=== PATIENT | female | born 1990 | race Caucasian/White ===

== ENCOUNTER 2019-05-29 15:47 | Outpatient (REF) | payer BC, SELFPAY ==
--- NOTE | 2019-05-29 15:00 | PAPFT_PTH ---
PATIENT: Laura Baker LOC: [facility] U#:[id number] AGE/SX: 28/F ROOM: RE05/29/[address]: Bennett Lindo MD : 1990 BED: DIS: 05/29/2019 SPEC #: [id number] RECD: 05/29/19 17:34 STATUS: DESI REQ #: [id number] CAROLYN: 05/29/19 15:[address]: Bennett Lindo DEPT: [facility] Cytology RECD BY: Amy Watson Tissues: 1 - CX/ENDOCX FOR PAP SMEARS Procedures: PAP THIN PREP/UVM Screening HPV DNA PROBE Comments: [id number] (CHLAMYDIA/GC)
[2019-06-02 13:56] LABS: Chlamydia Result Negative; GC Result Negative; Specimen Description SEE COMMENTS
== END 2019-05-29 16:07 ==
LOC: LBN 15:47
PROVIDERS: Visit Provider Obstetrics & Gynecology
DX: Z12.4 Encounter for screening for malignant neoplasm of cervix (principal); Z11.51 Encounter for screening for human papillomavirus (HPV); Z11.3 Encounter for screening for infections with a predominantly sexual mode of transmission
CPT/HCPCS: 87491; 87591; 88142; 87624

== ENCOUNTER 2019-06-01 07:24 | Outpatient (CLI) | payer BC, SELFPAY ==
--- NOTE | 2019-06-01 09:58 | DI.US_ITS ---
EXAM: US PELVIS TRANSVAGINAL CLINICAL HISTORY: Pelvic pain, history of ovarian torsion on right, R10.2. TECHNIQUE: Ultrasound performed using standard protocol. COMPARISON: No exams were available for comparison FINDINGS: Pelvic ultrasound was performed transabdominally and transvaginally. Uterus is normal in appearance. Endometrial stripe is 3 millimeters in thickness and appears homogeneous. The patient reportedly has history of right ovarian torsion. On today's examination the ovaries are symmetrical in size. There is a normal follicular appearance of the left ovary. Right ovary contain s no visible follicles. Fairly symmetrical vascular flow to the ovaries identified on Doppler evalua tion. No free fluid identified in the cul-de-sac. Limited scanning of the kidneys is. IMPRESSION: No specific abnormality seen. Note is made that the right ovary contains no visible follicles. Left ovary has a normal follicular appearance.
== END 2019-06-01 07:44 ==
PROVIDERS: Visit Provider Obstetrics & Gynecology
DX: R10.2 Pelvic and perineal pain (principal)
CPT/HCPCS: 76830; 76856

== ENCOUNTER 2019-09-04 10:32 | Outpatient (CLI) | payer BC, SELFPAY ==
[2019-09-04 11:51] LABS: Abs Immature Grans 0.01 k/cumm (0.0-0.09); Absolute Basophil Count 0.02 k/cumm (0.0-0.2); Absolute Eosinophil Count 0.11 k/cumm (0.0-0.7); Absolute Lymphocyte Count 2.11 k/cumm (1.2-3.4); Absolute Neutrophil Count 3.24 k/cumm (1.2-6.7); Basophils % 0.3; Eosinophils % 1.9; HGB 12.8 g/dL (12.0-15.5); Immature Grans % 0.2 %; Lymphocytes % 35.8; Mean Corp. HGB Concentration 33.7 g/dL (32.0-36.0); Mean Corpuscular Hemoglobin 29.6 pg (27.0-33.0); Mean Corpuscular Volume 87.8 fL (80-95); Monocytes % 6.8; Platelet Count 278 x1000/uL (130-400); RBC 4.33 m/cumm (4.00-5.20); RBC Distribution Width 12.9 % (11.7-14.6); White Blood Cell Count 5.89 k/cumm (4.4-10.8)
== END 2019-09-04 10:52 ==
PROVIDERS: Visit Provider Obstetrics & Gynecology
DX: R10.2 Pelvic and perineal pain (principal); Z01.818 Encounter for other preprocedural examination; Z01.812 Encounter for preprocedural laboratory examination
CPT/HCPCS: 36415; 86850; 86900; 86901; 85025

== ENCOUNTER 2019-09-09 06:19 | Day surgery (SDC) | payer BC, SELFPAY ==
[2019-09-04 10:38] VITALS: BP 110/80; PULSE 66; RESP 16
[2019-09-09] VITALS (7 sets, daily range): BP systolic 101–121; BP diastolic 51–86; PULSE 55–69; RESP 15–24; TEMP 36.3–36.8; O2SAT 96–100
[2019-09-09] MEDS: Lactated Ringers 1,000 ML 125 ML IV (06:57)
[2019-09-09] MEDS: ceFAZolin 2 GM/50 ML BAG IVPB (07:29)
[2019-09-09] MEDS: Bupivacaine 0.5% Pres-Free 30 ML VIAL (08:22)
--- NOTE | 2019-09-09 08:46 | W.PM.DSUDISC ---
Discharge Plan Disposition Patient Disposition: HOME Condition: Good Discharge Details Attending Provider: Bennett Lindo Primary Care Provider: None,None Home Meds and New Rx's Prescriptions: Continued norethindrone-e.estradiol-iron [Loestrin Fe 09/07 (28-Day)] 1 mg-20 mcg (21)/75 mg (7) tablet 1 tab PO DAILY RF: 0 Discharge Instructions Activity:: Activity as Tolerated Diet:: As Tolerated Discharge Orders Discharge Orders: Discharge Order (Routine); Ordered 09/09/19 Ordered By: Bennett Lindo DS: Diagnosis Discharge Diagnosis (1) Adnexal pain: Status: Acute
--- NOTE | 2019-09-09 08:47 | W.PM.OP ---
Date of service: 09/09/19 Time of Service: 08:47 Operative Note Operative Note DATE OF PROCEDURE: 09/09/19 PRE-OP DIAGNOSIS: Right adnexal pain POST-OP DIAGNOSIS: same PROCEDURE: Laparoscopy with lysis of adnexal adhesions. SURGEON: Bennett Lindo ASSISTING SURGEON: Jeanette Kumar ANESTHESIA: GETA ESTIMATED BLOOD LOSS: 0 PATHOLOGY: none sent COMPLICATIONS: None Patient was transported to: PACU Patient's condition: stable Findings: 1. Adhesions involving the ovary to the broad ligament and ovarian fossa. Procedure Description: The patient was taken to the operating room and after adequate general anesthesia, the patient was placed in lithotomy position. The patient was prepped and draped in the usual sterile manner. A e-Zassi uterine manipulator was placed through the cervix. The patient was repositioned. The surgeon was regloved. Attention was then turned to the patient's abdomen. The skin and subcutaneous tissues at the umbilicus were infiltrated with 0.25% Marcaine solution. A small infraumbilical skin incision was then made with a #15 blade scalpel. Sharp dissection was carried down to the underlying layer of fascia. The fascia was grasped and elevated with 2 Merlene clamps. The fascia was incised with a 15 blade scalpel and the peritoneum was entered bluntly with hemostats. Two S retractors were placed through the incision. The fascia was tagged with 2 sutures of 0 Vicryl superiorly and inferiorly. A 10 mm balloon trocar was advanced to the incision and the abdomen was insufflated with carbon dioxide. 2 5 mm ports were introduced in the right and left lower quadrants both under direct visualization. A thorough inspection of the entire abdominal cavity was undertaken. There was a small area of filamentous adhesions in the right upper quadrant. The uterus, left tube and ovary were grossly normal in appearance. The right ovary was incorporated into filmy adhesions to the posterior broad ligament and to the ovarian fossa. The ovary itself was grossly normal. The fallopian tube was also grossly normal and the fallopian tube was not involved with the adhesions. The adhesions were taken down along the pelvic sidewall into the ovarian fossa. The remaining adhesions to the broad ligament were also taken down with LigaSure device. Once the adhesions were taken down the ovary was mobile as was the fallopian tube and the decision was made to not proceed with oophorectomy at this time. Photodocumentation was obtained. The two 5 mm trochars were removed under direct visualization. The abdomen was desufflated and the 10 mm umbilical trocar was removed. The fascia at the umbilicus was closed with the 2 previously placed sutures of 0 Vicryl. Skin incisions were closed with 4 Monocryl and Dermabond was applied. The procedure was concluded at this point. Sponge, lap and needle counts were correct at the conclusion of the procedure and the patient was transferred to PACU in stable condition.
[2019-09-09] MEDS: fentaNYL 100 MCG/2 ML VIAL IVP (08:55)
== END 2019-09-09 10:46 | disposition home or self-care (01) ==
PROVIDERS: Visit Provider Obstetrics & Gynecology
PROC: (CPT 58661; principal; 2019-09-09 07:30)
DX: N73.6 Female pelvic peritoneal adhesions (postinfective) (principal); R10.2 Pelvic and perineal pain; R10.31 Right lower quadrant pain
CPT/HCPCS: 58660; 81025; J0131; J0690; J1100; J1885; J2001; J2250; J2405; J2704; J3010

== ENCOUNTER 2020-03-24 01:17 | Outpatient (CLI) | payer BC, SELFPAY ==
--- NOTE | 2020-03-24 06:45 | DI.US_ITS ---
EXAM: US RENAL CLINICAL HISTORY: Persistent R flank pain, normal urine,r10.9 TECHNIQUE: Ultrasound performed using standard protocol. COMPARISON: US US PELVIS TRANSVAGINAL from 06/01/2019 FINDINGS: Kidneys are normal in size and shape. There is no right hydronephrosis. There is question of mild l eft hydronephrosis. Ureteral jets were noted bilaterally. No nephrolithiasis ultrasound a graphical ly criteria. Urinary bladder is unremarkable in appearance with pre and post void measurements 296 cc and 13 cc re spectively. IMPRESSION: Question mild left hydronephrosis. If clinically appropriate, additional evaluation with CT urogram should be considered to evaluate possible low-grade obstruction. DATA REPOSITORY:
== END 2020-03-24 01:37 ==
PROVIDERS: PCP Nurse Practitioner Adult Health; Visit Provider Family Medicine
DX: R10.9 Unspecified abdominal pain (principal)
CPT/HCPCS: 76770

== ENCOUNTER 2020-04-11 02:47 | Outpatient (CLI) | payer BC, SELFPAY ==
[2020-04-11 14:43] LABS: Anion Gap 14.3 mmol/L (3-11); BUN 14 mg/dL (7-18); CO2 24.7 mmol/L (21.0-32.0); CREATININE 0.69 mg/dL (0.55-1.02); Calcium 9.1 mg/dL (8.5-10.1); Chloride 107 mmol/L (98-107); Glucose 99 mg/dL (74-106); Potassium 3.7 mmol/L (3.5-5.1); Sodium 146 mmol/L (136-145)
== END 2020-04-11 03:07 ==
PROVIDERS: PCP Nurse Practitioner Adult Health; Visit Provider Nurse Practitioner Adult Health
DX: R10.9 Unspecified abdominal pain (principal); R93.422 Abnormal radiologic findings on diagnostic imaging of left kidney
CPT/HCPCS: 36415; 80048

== ENCOUNTER 2020-07-26 01:31 | Outpatient (CLI) | payer BC, SELFPAY ==
--- NOTE | 2020-07-26 07:30 | DI.US_ITS ---
EXAM: US RENAL CLINICAL HISTORY: Reassess ?L hydronephrosis,RT FLANK PAIN,F/U ABNL US,R10.9,R93.429 TECHNIQUE: Ultrasound performed using standard protocol. COMPARISON: US US RENAL from 03/24/2020 FINDINGS: Renal ultrasound was performed according to the usual protocol. The examination is compared with faustina or study of March 24 which showed question mild left hydronephrosis. The left collecting system an d proximal ureter appear unchanged comparison with the prior study, again slight caliceal prominence is noted and slight prominence of the renal pelvis is noted. No right hydronephrosis seen. There is no evidence of nephrolithiasis or renal mass by ultrasound cr iteria. Urinary bladder appears unremarkable with pre and postvoid urinary bladder volume measurements 188 cc and 0 cc respectively. Ureteral jets were not visualized. IMPRESSION: No change in appearance of left collecting system, question mild left hydronephrosis persistent since March examination. DATA REPOSITORY:
== END 2020-07-26 01:51 ==
PROVIDERS: PCP Nurse Practitioner Adult Health; Visit Provider Nurse Practitioner Adult Health
DX: R10.9 Unspecified abdominal pain (principal); R93.429 Abnormal radiologic findings on diagnostic imaging of unspecified kidney
CPT/HCPCS: 76770

== ENCOUNTER 2020-09-20 01:34 | Outpatient (CLI) | payer BC, SELFPAY ==
--- NOTE | 2020-09-20 06:45 | DI.CT_ITS ---
EXAM: CT ABDOMEN PELVIS WO/W CLINICAL HISTORY: mild hydro to left and continued flank pain,R93.429,R10.9,ABNL RENAL US TECHNIQUE: Imaging Protocol: Axial computed tomography images with coronal and sagittal reformatted images were created and reviewed CONTRAST MATERIAL: Intravenous: Omnipaque 350 Contrast volume:100 mL Oral: No COMPARISON: US US RENAL from 07/26/2020 FINDINGS: ABDOMEN: Lung Bases: Normal where visualized. Liver: Normal density. No measurable mass. Portal, Superior Mesenteric, and Splenic Veins: Unremarkable. Gallbladder and Biliary Tract: Status post cholecystectomy. No biliary ductal dilatation. Pancreas: Normal density, no abnormal calcifications or inflammatory process. Spleen: Normal. Adrenals: No masses seen. Kidneys: Normal size, contour and axis. No radiodense stones or obstructive uropathy. No masses seen. There is normal and symmetric enhancement of the kidneys. The 7 minutes delayed images show normal excretion of contrast with unremarkable opacification of both left and right renal collecting systems . No evidence of obstruction is seen. Abdominal Aorta: Abdominal portion non-dilated. Bowel: No obstruction or bowel wall thickening. No evidence of appendicitis. Peritoneal Cavity: No ascites, collection or mesenteric inflammatory response. No free air. Lymph Nodes: Within normal limits. Bones: Within normal limits for the patient's age. Soft Tissues: Unremarkable. PELVIS: Bladder: Symmetric distention, no gross wall thickening. Reproductive Organs: Unremarkable as visualized. Lymph Nodes: Within normal limits. Bones: Within normal limits for the patient's age. IMPRESSION: No evidence of nephrolithiasis or hydronephrosis. RADIATION DOSE DELIVERED: 2,170.46mGy.cm Total DLP DATA REPOSITORY: All CT scans at this facility are submitted to the National Radiology Data Registry (NRDR) Dose Index Registry (DIR) with the [employer] (A[employer]). RADIATION OPTIMIZATION: All CT scans at this facility use at least one of these dose optimization te chniques: automated exposure control; mA and/or kV adjustment per patient size (includes targeted exa ms where dose is matched to clinical indication); or iterative reconstruction.
[2020-09-20] MEDS: Omnipaque 350 MG/ML 100 ML BTL IJ (08:57)
== END 2020-09-20 01:35 | disposition home or self-care (01) ==
LOC: DI 01:34
PROVIDERS: PCP Nurse Practitioner Adult Health; Visit Provider Nurse Practitioner Gerontology
DX: R93.422 Abnormal radiologic findings on diagnostic imaging of left kidney (principal); R10.9 Unspecified abdominal pain
CPT/HCPCS: 74178; J3490

== ENCOUNTER 2021-10-24 10:00 | Day surgery (SDC) | payer OTHER, SELFPAY ==
[2021-10-23 16:04] LABS: Source Nasal/Nares
[2021-10-23 16:48] LABS: COVID-19 PCR Negative (Negative)
[2021-10-24 10:21] VITALS: BP 113/80; PULSE 59; RESP 16; TEMP 36.6; O2SAT 100
[2021-10-24 10:46] LABS: HGB 11.5 g/dL (11.2-15.7); MCH 30.7 pg (27.0-33.0); MCHC 34.8 % (32.0-36.0); MPV 8.8 fL (8.0-11.0); Platelet Count 249 10^3/uL (130-400); RBC 3.75 10^6/uL (3.93-5.22); RDW 12.6 % (11.7-14.6); RDW-SD 40.3 fL; WBC 7.73 10^3/uL (4.4-10.8)
[2021-10-24] MEDS: Lactated Ringers 1,000 ML 125 ML IV (10:50)
[2021-10-24] MEDS: DOXYCYCLINE 100 MG in Normal Saline 100 ML IVPB (11:04)
[2021-10-24] MEDS: Normal Saline Flush 10 ML SYR IV (11:06)
--- NOTE | 2021-10-24 11:11 | W.ANESPRE ---
General Info Date of Service Date Performed: 10/24/21 Height: 5 ft 5 in Weight: 70.4 kg Body Mass Index (BMI): 25.8 Surgical Procedure: Operation Date: 10/24/21 11:55 Proposed Procedure Side Surgeon p Suction Completion D&C Cristin Mccord MD Meds Allergies and Home Medications Allergies Allergy/AdvReac Type Severity Reaction Status Date / Time No Known Allergies Allergy Verified 10/24/21 10:18 Home Medication Medication Instructions Recorded prenat.vits,aashish,gyn-pifz-ivowq 1 tab PO DAILY 09/12/21 Current Visit Medications: Current Medications Generic Name Dose Route Start Last Admin Trade Name Freq PRN Reason Stop Dose Admin Ringer's Solution 1,000 mls @ 125 mls/hr 10/24/21 06:00 10/24/21 10:50 IV 11/16/21 23:59 125 mls/hr INFUSION EMILY Administration Doxycycline Hyclate 100 mg/ 100 mls @ 100 mls/hr 10/24/21 06:00 10/24/21 11:04 Sodium Chloride IVPB 10/24/21 16:00 100 mls/hr PREOP EMILY Administration IV Miscellaneous Supplies 1 each 10/24/21 06:00 Iv Access IV 11/16/21 23:59 DIRECTED EMILY Sodium Chloride 0 ml 10/24/21 06:00 10/24/21 11:06 Normal Saline Flush 10 Ml Syr IV 11/16/21 23:59 10 ml PRN PRN Administration Sodium Chloride 0 ml 10/24/21 06:00 Normal Saline 10 Ml Vial IJ 11/16/21 23:59 DIRECTED PRN Sterile Water 0 ml 10/24/21 06:00 Water,Injection,Sterile 10 Ml Vial IJ 11/16/21 23:59 DIRECTED PRN PFSH Active Problems Active Problems: Problem Status Onset Code Preop examination Z01.818 Spontaneous at 8 to 28 weeks gestation O03.9 Screening for malignant neoplasm of cervix Z12.4 Healthy adult Abnormal renal ultrasound R93.429 Flank pain R10.9 Threatened in first trimester O20.0 Medical History Medical History Adnexal pain Axillary lump Surgical History Surgical History History of gynecologic surgery hx of ovarian torsion surgery-2015 Hx of appendectomy Hx of cholecystectomy Hx of laparoscopy RIGHT -Hx ovarian cystectomy and reduction of ovarian torsion - 2017 S/P laparoscopic surgery Tobacco Smoking/Tobacco Use Status: Never Alcohol Alcohol Intake: current Alcohol intake frequency: a few times a week Alcohol type: beer and wine Substance Use Substance use: Never Substance use type: does not use Prental History History 1 Para 0 Hx # Term Pregnancies Multiple births Hx # Pregnancies Ectopic pregnancies AB induced 1 Hx Number of Living Children AB spontaneous Vital Signs and Lab Results Vital Signs Most Recent Vital Signs in EMR: Most Recent Vital Signs Temp Pulse Resp BP Pulse Ox 36.6 C 59 L 16 113/80 100 10/24/21 10:21 10/24/21 10:21 10/24/21 10:21 10/24/21 10:21 10/24/21 10:21 Lab Results Result Diagrams: 10/24/21 10:35 Blood Type / Crossmatch: No Data to Display Complete Blood Count: White Blood Count 7.73 10^3/uL (4.4-10.8) 10/24/21 10:35 10/24/21 Red Blood Count 3.75 10^6/uL (3.93-5.22) L 10/24/21 10:35 10/24/21 Hemoglobin 11.5 g/dL (11.2-15.7) 10/24/21 10:35 10/24/21 Hematocrit 33.0 % (36.0-46.0) L 10/24/21 10:35 10/24/21 Platelet Count 249 10^3/uL (130-400) 10/24/21 10:35 10/24/21 Complete Metabolic Panel: No Data to Display Liver Function Panel: No Data to Display Coagulation Panel: No Data to Display Cardiac Panel: No Data to Display Arterial Blood Gas: No Data to Display Venous Blood Gas: No Data to Display Pancreas Panel: No Data to Display Thyroid Panel: No Data to Display Infectious Disease: Coronavirus (COVID-19)(PCR) Negative (Negative) 10/23/21 16:00 10/23/21 Coronavirus 2019 Source Nasal/Nares 10/23/21 16:00 10/23/21 Blood Cultures: No Data to Display Toxicology Panel: No Data to Display Panel: No Data to Display Anesthesia Assessment and Plan Anesthesia History Personal History: No History of Anesthesia Complications Family History: No Family History of Anesthesia Complications Exercise Tolerance Exercise Tolerance: Metabolic Equivalents>4 Pertinent Negatives Pertinent Negatives: No Symptoms of GERD Cardiac & Pulmonary Exam Cardiac Exam: Normal S1/S2 Heart Sounds Pulmonary Exam: Clear Bilateral Breath Sounds Implantable Cardiac Device Does patient have a Pacemaker or an ICD?: No Airway Exam Known Difficult Airway: No Mallampati Class: 2 Mouth Opening: Normal (> 3cm) Thyromental Distance: Greater than 3 cm Neck Range of Motion: Full ROM Neck Circumference: Normal Teeth Condition: Normal Dentition ASA Classification ASA Score: ASA 2 Emergency Case?: No NPO Status NPO Status: NPO Clears >2 hours, Solids >8 hours Status Status: Not Relevant due to Medical History Anesthesia Plan Resuscitation Status: Full Code Anesthesia Technique: General Anesthesia Airway Planned: Natural Airway Monitors Used: Standard Monitors
[2021-10-24 11:14] VITALS: BMI 25.8
[2021-10-24] MEDS: Bupivacaine 0.25% Pres-Free 30 ML VIAL (12:00)
--- NOTE | 2021-10-24 12:00 | POCSPONT_PTH ---
PATIENT: Laura Baker LOC: [facility] U#:[id number] AGE/SX: 30/F ROOM: RE10/24/[address]: Cristin Mccord : 1990 BED: DIS: 10/24/2021 SPEC #: [id number] RECD: 10/24/21 12:55 STATUS: DESI REQ #: [id number] CAROLYN: 10/24/21 12:[address]: Cristin Mccord DEPT: Surgical Specimen RECD BY: Amy Watson ENTERED: 10/24/21 12:55 SP TYPE: ROBERTO TSE DR: Honey Caballero APRN Tissues: 1 - ,SPONTANEOUS Procedures: GROSS AND MICRO LEVEL 4 Comments: [id number]
[2021-10-24] MEDS: Silver Nitrate Stick 1 EACH (12:03)
--- NOTE | 2021-10-24 12:15 | W.PM.OP ---
Date of service: 10/24/21 Time of Service: 12:16 Operative Note Operative Note DATE OF PROCEDURE: 10/24/21 PRE-OP DIAGNOSIS: Spontaneous at 9w EGA. PROCEDURE: cervical dilation and suction evacuation of products of conception SURGEON: Cristin Mccord Refer to Anesthesia Record ESTIMATED BLOOD LOSS: 5 PATHOLOGY: other (products of conception) COMPLICATIONS: None Patient was transported to: same day Patient's condition: stable Indications: Pt is a 30yo female with a LMP 08/19/21 who was diagnosed with a missed on 10/23/21. The crown rump length of the fetus was c/w a 7w3d EGA. No heart rate noted at time of C dating u/s. The SAB was confirmed by an ultrasound performed in diagnostic imaging. Findings: Uterus, globular, closed cervix. Moderate products of conception recovered. Procedure Description: Patient was taken to the operating room where she was placed in the dorsal supine position and general anesthesia was administered without difficulty. IV Doxycycline was administered upon arrival in the OR. She was then placed in the dorsal lithotomy position in yellowfin stirrups in a neurologically neutral position. She was then prepped, and draped in the usual sterile fashion. Surgical timeout was performed. [place] speculum was placed into the vagina and the anterior lip of the cervix was infiltrated with 2 cc of 0.25% Marcaine without epinephrine. A single-tooth tenaculum was then used to grasp and hold the anterior lip of the cervix. A paracervical block was performed with 4 cc of quarter percent Marcaine injected into the 4 and 8:00 paracervical spaces respectively. The cervix was then sequentially dilated to a maximum of 16 [place] and a 8 mm curved suction cannula was attached to suction and the level of suction tested. The cannula was inserted into the uterine cavity attached to suction and sequentially all 4 quadrants of the uterine cavity were suction curetted until minimal amount of tissue was returned. The suction cannula was then removed a banjo curette was used to perform a gentle curetting of all 4 quadrants of the uterine cavity. Minimal tissue was returned. A final insertion of the suction cannula and suction curetting of all 4 quadrants was performed with minimal tissue returned. All instruments were removed from the vagina tenaculum site was noted to be bleeding. The bleeding responded to application with Silver Nitrate. Patient was awakened and transported to recovery area in stable condition. All sponge lap needle counts correct x2
[2021-10-24 12:24] VITALS: BP 106/63; PULSE 50; RESP 16; TEMP 36.3; O2SAT 99
--- NOTE | 2021-10-24 12:42 | W.PM.DSUDISC ---
Discharge Plan Disposition Patient Disposition: HOME Condition: Good Discharge Details Reason For Visit: D&C at 9w EGA Attending Provider: Cristin Mccord Primary Care Provider: Honey Caballero Home Meds and New Rx's Prescriptions: No Action prenat.vits,aashish,cgw-ihce-zoist Tablet 1 tab PO DAILY 0RF Discharge Instructions Additional Instructions: You may use Ibuprofen, 600mg every 6 hours as needed for cramping and pain. You may also use Acetaminophen 325mg ever 6 hours for pain as needed. Make an appointment with Dr. Mccord in 2weeks to discuss the results of the pathology results. No sex until you f/u with Dr Mccord Stand Alone Forms: DSU Post Gynecology Surgery Activity:: Activity as Tolerated Diet:: As Tolerated Discharge Orders Discharge Orders: Discharge Order (Routine); Ordered 10/24/21 Ordered By: Cristin Mccord
--- NOTE | 2021-10-24 13:08 | W.ANESPOSTOP ---
Postoperative Evaluation Date, Time and Location Date Performed: 10/24/21 Time Performed: 13:08 Patient Location: Day Surgery Unit Vital Signs Most Recent Imported Vital Signs: Most Recent Vital Signs Temp Pulse Resp BP Pulse Ox 36.3 C L 50 L 16 106/63 99 10/24/21 12:24 10/24/21 12:24 10/24/21 12:24 10/24/21 12:24 10/24/21 12:24 Pain Score Most Recent Pain Score: Most Recent Pain Score Pain Level 5 10/24/21 12:24 Assessment Mental Status: Awake (Alert & Oriented to Patient Baseline) Airway and Respiratory Function: Patent airway with normal (patient baseline) respiratory exam Cardiovascular Function: Hemodynamically Stable Hydration Status: Adequately Hydrated Nausea & Vomiting: No Nausea or Vomiting Pain: Pain is tolerable per patient Peripheral Nerve Block: Patient did not receive a nerve block
[2021-10-24] MEDS: Ketorolac 15 MG/ML VIAL IVP (13:14)
[2021-10-24 13:21] VITALS: BP 94/60; PULSE 46; RESP 16; TEMP 36.2; O2SAT 100
== END 2021-10-24 13:47 | disposition home or self-care (01) ==
PROVIDERS: PCP Nurse Practitioner Adult Health; Visit Provider Obstetrics & Gynecology Gynecology
PROC: (CPT 59841; principal; 2021-10-24 11:45)
DX: O02.1 Missed abortion (principal); Z3A.09 9 weeks gestation of pregnancy; Z20.822 Contact with and (suspected) exposure to COVID-19
CPT/HCPCS: 59820; 36415; 85027; 86850; 86900; 86901; 87635; 88305; J1100; J1885; J2001; J2250; J2405; J2704

== ENCOUNTER 2021-11-08 14:33 | Outpatient (CLI) | payer OTHER, SELFPAY ==
[2021-11-08 14:48] LABS: HCG Quant, Pregnancy 87 mIU/mL (1-3)
== END 2021-11-08 14:34 | disposition home or self-care (01) ==
LOC: LBO 14:38
PROVIDERS: PCP Nurse Practitioner Adult Health; Visit Provider Obstetrics & Gynecology Gynecology
DX: O03.9 Complete or unspecified spontaneous abortion without complication (principal)
CPT/HCPCS: 36415; 84702

== ENCOUNTER 2021-12-18 12:20 | Outpatient (CLI) | payer OTHER, SELFPAY ==
[2021-12-18 11:11] LABS: HCG Quant, Pregnancy 2 mIU/mL (1-3)
== END 2021-12-18 12:21 | disposition home or self-care (01) ==
LOC: LBO 12:21
PROVIDERS: PCP Nurse Practitioner Adult Health; Visit Provider Nurse Practitioner Women's Health
DX: N92.6 Irregular menstruation, unspecified (principal)
CPT/HCPCS: 36415; 84702

== ENCOUNTER 2021-12-20 01:25 | Outpatient (CLI) | payer OTHER, SELFPAY | END 2021-12-20 01:26 | disposition home or self-care (01) | LOC: LBO 01:26 | PROVIDERS: PCP Nurse Practitioner Adult Health; Visit Provider Nurse Practitioner Women's Health ==

== ENCOUNTER 2022-01-24 03:49 | Outpatient (CLI) | payer OTHER, SELFPAY ==
[2022-01-24 16:20] LABS: TSH (W/Ref FT4) 0.51 uIU/mL (0.36-3.74)
[2022-01-24 21:57] LABS: D-Dimer (UVM) <200 ng/mL DDU (<=230); PTT (UVM) 31 secs (26-37)
[2022-01-25 10:55] LABS: Antithrombin 3, Funct. 83 % (85-125); Factor 8 Assay 92 % (50-150)
[2022-01-25 16:50] LABS: Beta 2 GP1 Ab IgG <9.4 U/mL; Beta 2 GP1 Ab IgM <9.4 U/mL
[2022-01-25 17:18] LABS: Dilute Russell Viper Venom 29.5 secs (25.2-42.2); LA Cascade Summary (See Note); Silica Clotting Time 42.4 secs (30.2-48.4)
[2022-01-25 19:03] LABS: Phospholipid Ab, IgG 12.9 GPL; Phospholipid Ab, IgM 9.8 MPL
[2022-01-31 12:16] LABS: Protein C, Functional 108 % (71-199); Protein S, Functional 113 % (64-147)
== END 2022-01-24 03:50 | disposition home or self-care (01) ==
LOC: LBO 03:49
PROVIDERS: PCP Nurse Practitioner Adult Health; Visit Provider Obstetrics & Gynecology Gynecology
DX: N96 Recurrent pregnancy loss (principal)
CPT/HCPCS: 36415; 81240; 81241; 82784; 85300; 85303; 85306; 85610; 85613; 85730; 85732; 84443; 85240; 85379

== ENCOUNTER 2023-12-02 06:00 | Outpatient (CLI) | payer BC, SELFPAY ==
[2023-12-02 11:44] LABS: Panorama Kit Sent via Fed Ex
[2023-12-02 12:19] LABS: Abs Immature Grans 0.06 10^3/uL (0.0-0.06); Absolute Basophil Count 0.02 10^3/uL (0.0-0.2); Absolute Eosinophil Count 0.07 10^3/uL (0.0-0.7); Absolute Monocyte Count 0.35 10^3/uL (0.1-0.8); Absolute Neutrophil Count 5.38 10^3/uL (1.2-6.7); Basophils % 0.3; Eosinophils % 0.9; HCT 33.5 % (36.0-46.0); HGB 11.6 g/dL (11.2-15.7); Immature Grans % 0.8; Lymphocytes % 22.4; MCH 30.7 pg (27.0-33.0); MCHC 34.6 % (32.0-36.0); MCV 89 fL (80-95); MPV 8.8 fL (8.0-11.0); Monocytes % 4.6; Platelet Count 242 10^3/uL (130-400); RBC 3.78 10^6/uL (3.93-5.22); RDW 13.2 % (11.7-14.6); RDW-SD 42.9 fL; WBC 7.58 10^3/uL (4.4-10.8)
[2023-12-02 19:47] LABS: Hepatitis B Surface Ag Negative (Negative)
[2023-12-02 20:13] LABS: HIV-1/2 Ag & Ab Screen Negative (Negative)
[2023-12-02 20:20] LABS: Hepatitis C Ab w Rflx HCV PCR Negative (Negative)
[2023-12-03 10:27] LABS: Rubella IgG Ab (UVM) Positive (See Note); Varicella IgG Antibody Positive (See Note)
[2023-12-04 20:54] LABS: Syphilis IgG w/Reflex Nonreactive (Nonreactive)
[2023-12-05 16:53] LABS: Specimen WB Whole Blood
[2023-12-13 18:10] LABS: Result Summary NEGATIVE; Specimen WB Whole Blood
== END 2023-12-02 06:01 | disposition home or self-care (01) ==
LOC: LBO 06:01
PROVIDERS: PCP Nurse Practitioner Adult Health; Visit Provider Advanced Practice Midwife
DX: Z34.91 Encounter for supervision of normal pregnancy, unspecified, first trimester (principal)
CPT/HCPCS: 36415; 81220; 81222; 81329; 86787; 86803; 86850; 86900; 86901; 87340; 87389; 87491; 87591; 85025; 86762; 86780

== ENCOUNTER 2023-12-02 12:55 | Outpatient (REF) | payer BC, SELFPAY ==
--- NOTE | 2023-12-02 11:30 | PAPFT_PTH ---
PATIENT: Laura Baker LOC: [facility] U#:[id number] AGE/SX: 32/F ROOM: RE12/02/[address]: Donna Christian CNM : 1990 BED: DIS: 12/02/2023 SPEC #: [id number] RECD: 12/02/23 18:01 STATUS: DESI REQ #: [id number] CAROLYN: 12/02/23 11:[address]: Donna Christian [facility] Cytology RECD BY: Amy Watson ENTERED: 12/02/23 18:02 SP TYPE: PAPFT OTHR DR: Honey Caballero APRN Tissues: 1 - CX/ENDOCX FOR PAP SMEARS Procedures: PAP THIN PREP/UVM Screening HPV DNA PROBE Comments: [id number] (CHLAMYDIA/GC)
[2023-12-03 13:50] LABS: Chlamydia Result Negative (Negative); GC Result Negative (Negative)
== END 2023-12-02 12:56 | disposition home or self-care (01) ==
LOC: LBN 12:55
PROVIDERS: PCP Nurse Practitioner Adult Health; Visit Provider Advanced Practice Midwife
DX: Z34.91 Encounter for supervision of normal pregnancy, unspecified, first trimester (principal)
CPT/HCPCS: 87491; 87591; 88142; 87086; 87624

== ENCOUNTER 2024-03-23 03:12 | Outpatient (CLI) | payer BC, SELFPAY ==
[2024-03-23 10:21] LABS: HCT 30.5 % (36.0-46.0); HGB 10.8 g/dL (11.2-15.7); MCH 31.8 pg (27.0-33.0); MCHC 35.4 % (32.0-36.0); MCV 90 fL (80-95); MPV 9.2 fL (8.0-11.0); Platelet Count 209 10^3/uL (130-400); RDW 13.2 % (11.7-14.6); RDW-SD 43.7 fL; WBC 8.44 10^3/uL (4.4-10.8)
[2024-03-23 10:35] LABS: Glucose,1 Hr (Glucola) 123 mg/dL (80-140)
== END 2024-03-23 03:13 | disposition home or self-care (01) ==
LOC: LBO 03:12
PROVIDERS: PCP Nurse Practitioner Adult Health; Visit Provider Advanced Practice Midwife
DX: Z34.93 Encounter for supervision of normal pregnancy, unspecified, third trimester (principal)
CPT/HCPCS: 36415; 82950; 85027

== ENCOUNTER 2024-05-20 17:32 | Outpatient (REF) | payer BC, SELFPAY ==
--- OUTSIDE RECORDS SUMMARY | 2024-05-20 17:40 | XMS_ITS | Continuity of Care Document ---
Author Organization [facility] Address [address] [place] [address] Care Team Providers Care Glaze Wiper Name Role Phone ROGER MAY Primary Care Physician Encounter [facility] NBR [id number] Date(s): 10/25/23 - 10/25/23 [facility] [address] [place] [address] us Allergies, Adverse Reactions, Alerts No Known Allergies Assessment and Plan Future Appointments Medications Classic oral tablet 1 tab, Oral, Daily, with ferrous fum 28mg iron-folic acid 800mcg, 0 Refill(s) Start Date: 10/25/23 Status: Ordered Problem List Condition Confirmation Course Effective Dates Status Health St atus Informant 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 Procedures Procedure Date Related Diagnosis Body Site Status Uncomplicated Dilation and C urettage for missed AB , 2 10/22/21 Completed Laparoscopy with lysis of ad hesions of R adnexa 09/08/19 Completed Laparoscopic ovarian cystect tong, release of R ovarian torsion , 4 2014 Completed Laparoscopic appendectomy 5 Completed Laparoscopic cholecystostomy 6 Completed 17 weeks 3 days, Path: chorionic villi and partially necrotic decidua 29 weeks EGA, crown rump length of fetus was c/w 7 weeks 3 days EGA 3Retained her ovary 4Notes from [facility] state 2 different dates for this procedure, 2014 and 2016 5In her 20's 6as a child Social History Social History Type Response Smoking Status Smoking tobacco use: Never tobacco user;Never entered on: 10/25/23 Sex Female Physician Outpatient Note * Event Display: Office Clinic Note Physician Patient Care team information Care Team Personnel Name: ROGER MAY Position: No Access Member Role: Primary Care Physician Address: Address: [address] [place] [phone]
== END 2024-05-20 17:33 | disposition home or self-care (01) ==
LOC: LBN 17:32
PROVIDERS: PCP Nurse Practitioner Adult Health; Visit Provider Advanced Practice Midwife
DX: Z34.93 Encounter for supervision of normal pregnancy, unspecified, third trimester (principal); Z3A.36 36 weeks gestation of pregnancy
CPT/HCPCS: 87081

== ENCOUNTER 2024-06-17 07:44 | Outpatient (CLI) | payer BC, SELFPAY ==
[2024-06-17 08:53] VITALS: BP 133/78; PULSE 75
[2024-06-17 10:46] VITALS: BP 133/78; PULSE 75; TEMP 36.8
--- NOTE | 2024-06-17 12:07 | W.OBNST ---
Date of service: 06/17/24 Time of Service: 12:07 NST Evaluation Reason for NST Reasons for Nonstress Test: POSTDATES Gestational Age Gestational Age in Weeks and Days: 40 Weeks and 6Days Test and Monitor Explained Test/Monitor Explained: Test Explained, Monitor Explained and Patient Verbalized Understanding Vital Signs Blood Pressure: 133/78 Pulse: 75 Temperature: 98.2 F Urine Results Urine Protein: Negative Urine Ketones: Negative Urine Glucose: Negative Urine Blood: Negative NST Information Date on Monitor: 06/17/24 Time on Monitor: 08:52 Date off Monitor: 06/17/24 Time off Monitor: 10:10 Total Time on Monitor: 78 NST Interventions: Notify Provider and Other Contraction Frequency: Irregular NST Evaluation Patient States Movement: Present FHR Baseline: 140 Variability: Moderate 6-25 bpm Accelerations: 15x15 Decelerations: None NST Results: Reactive Note Ultrasound Done: JUDY Total JUDY: 10.0 Other Pertinent Findings: Heart Rate (126), Presentation (JACKY) and Placental Location (posterior) Coding for JUDY w/NST: Completed Exam. NST Note Note: Pt declines IOL, cvx is favorable, mild contractions noted on EFM tracing Pt agrees to NST over the weekend if undelivered, Booked for Pitocin IOL on 06/22 (41+4 wks) NST Reviewed and Verified by: Ann-Marie Marte
[2024-06-17 12:09] VITALS: BP 133/78; PULSE 75; TEMP 36.8
== END 2024-06-17 10:49 ==
LOC: BCD 07:48 → OBS 08:49
PROVIDERS: PCP Nurse Practitioner Adult Health; Visit Provider Advanced Practice Midwife
DX: O48.0 Post-term pregnancy (principal); Z3A.41 41 weeks gestation of pregnancy
CPT/HCPCS: 59025; 76815

== ENCOUNTER 2024-06-19 10:32 | Outpatient (CLI) | payer BC, SELFPAY ==
[2024-06-19 11:06] VITALS: BP 110/73; PULSE 76; TEMP 36.9
[2024-06-19 11:09] VITALS: BP 110/73; PULSE 76
--- NOTE | 2024-06-19 12:10 | W.OBNST ---
Date of service: 06/19/24 Time of Service: 12:10 NST Evaluation Reason for NST Reasons for Nonstress Test: OTHER, SEE COMMENT Reason for NST Other: Rule out labor Gestational Age Gestational Age in Weeks and Days: 41 Weeks and 1Days Test and Monitor Explained Test/Monitor Explained: Test Explained and Monitor Explained Vital Signs Blood Pressure: 110/73 Pulse: 76 Temperature: 98.4 F NST Information Date on Monitor: 06/19/24 Time on Monitor: 11:05 Date off Monitor: 06/19/24 Time off Monitor: 11:47 Total Time on Monitor: 42 NST Interventions: None NST Evaluation Patient States Movement: Present FHR Baseline: 125 Variability: Moderate 6-25 bpm Accelerations: 15x15 Decelerations: None NST Results: Reactive Note Ultrasound Done: N/A. NST Note Note: Laura is here for rule out labor. Reactive NST. cervix 1.5 cms 80 % effaced/ -1 soft. Side lying release performed. Signs of labor reviewed. Laura opted to go home and await active labor. NST Reviewed and Verified by: Donna Dominguez
[2024-06-19 12:16] VITALS: BP 110/73; PULSE 76; TEMP 36.9
== END 2024-06-19 11:50 ==
LOC: BCD 10:35 → OBS 10:59
PROVIDERS: PCP Nurse Practitioner Adult Health; Visit Provider Advanced Practice Midwife
DX: O47.1 False labor at or after 37 completed weeks of gestation (principal); Z3A.41 41 weeks gestation of pregnancy
CPT/HCPCS: 59025

== ENCOUNTER 2024-06-19 19:39 | Inpatient (IN) | payer BC, SELFPAY ==
[2024-06-19] VITALS (55 sets, daily range): BP systolic 115–138; BP diastolic 67–81; PULSE 0–109; RESP 18; TEMP 36.8; O2SAT 83–100; BMI 35.2
--- NOTE | 2024-06-19 19:41 | HPE_ITS ---
Date of service: 06/19/24 Time of Service: 19:42 Assessment and Plan Assessment and plan (1) Normal labor: Status: Acute Assessment and plan: A: 33 yo @ 41+1 wks, spontaneous onset of labor Category 1 tracing, intact membranes, GBS neg, Rh+ Increased risk for SD/PPH due to TWG 50 lbs, EFW >4000 gms & postdates Surgical hx of cholecystectomy, appendectomy, and right ovarian de-torsion Negative for history of DVT, thrombosis or abnormal clotting Noted that pt requests TL if surgical delivery becomes indicated P: Admit to BC, T&S, CBC, pt states she desires expectant management at this time Comfort measures as pt requests, intermittent FHT by pascale Mccord notified of admission Plan IV access as labor becomes more active (2) 41 weeks gestation of : Status: Acute (3) Antithrombin III deficiency: Status: Acute Assessment and plan: See [facility] Heme/Onc notes Negative history for abnormal clotting OB-HPI Labor/Delivery History of Present Illness Reason for Visit: NST Chief Complaint: Uterine Contractions (seen this morning and was 1-2 cm dilation, went home, napped [phone] then went for a walk, small amt bloody mucous noted, contractions frequent and painful for a couple of hours. No ROM, no vomiting.). AZUCENA Calculator Estimated Delivery Date Method Current WG Current Estimate 06/11/24 LMP (Uncertain) 41w 1d Other Estimates 06/14/24 Ultrasound #1 40w 5d History of Present Expected Delivery Route/Plan - CNM FOB/ - Fitz Baker (4 adopted children; Laila 8, Stfeanie 7, Callahn 6, AJ 5) BG Desires low intervention during childbirth GBS negative Specific Issues/Plan 1. 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/ [facility] 1a. Low dose ASA/ anticoagulation not needed per consult with Dr. Flowers who read all Hem/Onc notes and labs to review 2. cfDNA low risk female, CF- neg, SMA negative 3. FOB's niece had baby with heart defect requiring surgery, agrees to Level II US at [facility] (Level II US normal) and [facility] 4. 5P screen negative 5. Pt desires TL if needs a c/s. If no c/s spouse will have vasectomy. 6. Varicosities on right garcia, pt advised warning sx, leg up AMAP and hydration Review of Systems Narrative: ROS completed and noncontributory other than HPI PFSH All Active Problems (Updated 06/19/24 @ 19:41 by Ann-Marie Marte) 41 weeks gestation of (Acute) Normal labor (Acute) History of loss in prior , currently (Acute) Antithrombin III deficiency (Acute ~01/2022) 01/2022. 83% (Nl 85-125%) Family history of congenital heart defect (Acute) (Acute) Medical History (Updated 06/19/24 @ 19:41 by Ann-Marie Marte) Initiation of oral contraception Delayed menses History of recurrent miscarriages x3 Flank pain 2019 right lower pelvic/hip pain Axillary lump 2003 resolved spontaneously Adnexal pain Surgical History Hx of dilation and curettage 10/24/21. for missed AB at 9w EGA. CRL c/w 7w EGA. History of gynecologic surgery 2014. laparoscopic ovarian cystectomy and release of R ovarian torsion. Retained her ovary. Hx of laparoscopy 2020. Laparoscopy wih lysis of adhesions of R adnexa. Hx of appendectomy laparoscopic in her 20s. Hx of cholecystectomy laparoscopic. as a child. Family History Mother No problems noted. Father No problems noted. Brother No problems noted. Brother No problems noted. 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 Sexually active: Yes Do you think of yourself as: straight/heterosexual Current gender identity: female What is your relationship status?: Panel score (0-1 are the most socially isolated patients): 1 What type of physical activity do you participate in: regular exercise Frequency: daily Special adam needs: No Agree to transfusion: Yes Seatbelt use: always Helmet use: Yes Drive intox or ride w/intox seasonal driver: No Working smoke detector in home: Yes Fire extinguisher in home: Yes Carbon monox detector in home: Yes Do you feel safe at home: Yes Do you feel safe in your relationship?: Yes Victim of physical abuse: No Victim of emotional abuse: No Victim of sexual abuse: No History History 4 Para 0 Hx # Term Pregnancies 0 Multiple births 0 Hx # Pregnancies 0 Ectopic pregnancies 0 AB induced 0 Hx Number of Living Children 0 AB spontaneous 3 Past Pregnancies Del. Date GA/Weeks # Preg Succ Route Wgt Sex Labor Lgth Anesth esia Location [facility] 10/23/21 9 Cristin Larios or 12/17/21 4 No 01/17/22 No Delivery Date: 10/23/21 Last Updated by: Yvonne Roberts LPN suction D+c for miscarriage Delivery Date: 12/17/21 Last Updated by: Donna Christian CNM SAB without complication Delivery Date: 01/17/22 Last Updated by: Donna Christian CNM SAB without complications Meds Allergies and Home Medications Allergies Allergy/AdvReac Type Severity Reaction Status Date / Time No Known Allergies Allergy Verified 06/11/24 08:31 Home Medications ?Medication ?Instructions ?Recorded ?Confirmed ?Type vits no.126-ferrous fum tab PO QDAY 10/16/23 06/17/24 History 28 mg iron-folic acid 800 mcg tablet (Classic ) ferrous sulfate 134 mg (27 mg 134 mg PO DAILY 05/06/24 06/17/24 History iron) tablet Exam Physical Exam Vital Signs Reviewed: Yes Constitutional Constitutional: moderate distress, average body habitus and cooperative Detailed Labor and Delivery Exam Dilation: 4 Effacement (%): 100 station: -1 Position: ROP Cervix position: anterior Consistency: soft Amniotic Membrane Status: Intact (small forebag palpable) Contraction Frequency(min): q2-3 Contraction Duration(sec): 60 Contraction Intensity: Moderate/Strong Fetus A Heart Rate Baseline: 125 Monitor Accelerations: 15 X 15 Monitor Decelerations: None Variability: Moderate (6-25 BPM) Categories: Category I Est. Weight: 9 lb 4.151 oz Est. Weight: 4200 gms HEENT Exam HEENT Exam: Normal Neck Exam Neck Exam: Normal Chest/Brest/Axilla Exam Chest Exam: Normal Breast Exam Breast Exam: Not Done Respiratory Exam Respiratory Exam: Normal Cardiovascular Exam Cardiovascular Exam: Normal Abdominal Exam Abdominal Exam: Normal (nontender) Rectal Exam Rectal Exam: Normal Exam Exam: Normal Extremities Exam Extremities Exam: Normal Back/Spine/Pelvis Exam Back Exam: Normal Pelvis Adequate: Yes Skin Exam Skin Exam: Normal Neurological Exam Neurological Exam: Normal Psychiatric Exam Psychiatric Exam: Normal Results Results Group Beta Strep: Negative Blood Type: O+ Rubella Status: Immune Varicella Immunity: Immune Lab Results: 1 hr glucola @ 28 gaumb=475 Pre- BMI of 25 Hx SAB x3, antithrombin III lsightly low (83) in 2021 after 3rd SAB Heme-Onc consult @ [facility], anti-coag during was not recommended Risk Assessment Risk for Shoulder Dystocia Historical/Initial OB: NEGATIVE FOR: Pelvic Abnormality, Pre- BMI>30, Previous Shoulder Dystocia or Previous Macrosomia 36 Weeks: POSITIVE FOR: Maternal Weight Gain>40lbs; NEGATIVE FOR: Current Gestational DM or EFW>4500gms 40 Weeks: POSTIVE FOR: Maternal Weight Gain >40lb and Post Dates; NEGATIVE FOR: EFW> 4500 gms Increased Risk?: Yes Delivery Plan @ 36wks: Delivery Plan @ 40 wks: , IOL @ 41 wks, low tolerance for slow labor or arrest of descent Risk for Pre-Eclampsia Yes, if one or more: NEGATIVE FOR: Hx Pre-E/Gest HTN, Chronic HTN, Multiple Gestation, Pre-gestational DM, Renal Disease, Systemic Lupus or APA Syndrome Yes, if 2 or more: POSITIVE FOR: Nulliparity; NEGATIVE FOR: Age>= 35 yrs, >10yr btwn pregnancies, BMI>30, ethinicty, Mother/Sister w/ Pre-E or Previous IUGR Risk for Post- Hemorrhage Initial: NEGATIVE FOR: Multiple Gestation, Previous PPH, Known Clotting Deficiency, Grand Multiparity or Anticoagulation 36 Weeks: NEGATIVE FOR: Anemia, hgb<10, Low platelets(thrombocytopenia), Gestational HTN or Pre-E, Polyhydraminios or EFW>4500gms 40 Weeks: NEGATIVE FOR: Anemia, hgb<10, Low platelets (thrombocytopenia), Gestation HTN or Pre-E, Polyhydraminios or EFW>4500gms At Risk?: Yes (due to likely LGA infant) Counseled re: Active Management: Yes Risks Reviewed Risks Reviewed Upon Admission: Yes
[2024-06-19 19:59] LABS: HCT 35.6 % (36.0-46.0); HGB 12.4 g/dL (11.2-15.7); MCH 31.5 pg (27.0-33.0); MCHC 34.8 % (32.0-36.0); MCV 90 fL (80-95); MPV 9.1 fL (8.0-11.0); Platelet Count 193 10^3/uL (130-400); RBC 3.94 10^6/uL (3.93-5.22); RDW 13.4 % (11.7-14.6); RDW-SD 44.1 fL; WBC 14.95 10^3/uL (4.4-10.8)
--- NOTE | 2024-06-19 21:10 | W.PM.OBNL1 ---
Date of service: 06/19/24 Time of Service: 21:10 Informed Consent Informed Consent: Regional Anesthesia and Risk,Benefits,Alternatives Discussed Pelvic Exam Dilation: 7 Effacement (%): 100 station: -1 Consistency: soft Contractions Monitor Mode: Palpation Contraction Frequency(min): Q2-3 Contraction Duration(sec): 60 Intensity: Moderate/Strong Fetus A Monitor: Doppler Heart Rate Baseline: 130 FHR Rhythm: Regular Characteristics: Normal Amniotic Membrane Status: Intact Assessment and Plan Assessment and plan (1) Normal labor: Status: Acute Assessment and plan: A: pt requests epidural anesthesia active labor progressing P: COMMUNITY AFFAIRS DIRECTOR paged and en route Objective Vital Signs Reviewed: Yes Results Hemoglobin/Hematocrit: Hgb 12.4 g/dL (11.2-15.7) 06/19/24 19:52 Hct 35.6 % (36.0-46.0) L 06/19/24 19:52 Abnormal Lab Findings: Abnormal Labs 06/19/24 19:52 WBC 14.95 H Hct 35.6 L
[2024-06-19] MEDS: FentaNYL/ROPIvacaine 2 mcg/ml and 0.1% 200 ML CADD Cassette EP (21:30)
--- NOTE | 2024-06-19 22:00 | W.ANESNEU ---
Epidural/Spinal Catheter Date Performed: 06/19/24 Procedure Start: 21:20 Procedure Stop: 21:45 Requesting Provider: Ann-Marie Marte Procedure Location: Obstetrics Reason Performed: Labor Epidural Standard Monitors Applied: ECG, Blood Pressure, SpO2 and See EMR for corresponding vital signs Patient Position: Sitting Sedation Given (Indicate Dose Given): No Sedation given Patient Mental Status: Awake Sterility: Hand Hygiene, Surgical Cap, Surgical Mask, Sterile Gloves, Sterile Drape/Sheet, Eye Protection and Chlorhexidine Procedure Location: L3-L4 Interspace Epidural Needle: Tuohy 18 Gauge Needle Length: 3.5 Inch Needle Approach: Midline Epidural Procedure: Skin Prepped, Sterile Drape Placed, 1% Lidocaine to skin and subcutaneous tissue with 25G needle, Tuohy Needle placed, SCOTT to Saline Used, Epidural Catheter Placed, Negative Heme, Negative CSF Flow and Tuohy Needle Removed Catheter Placed?: Catheter Placed Test Dose (Indicate Dose Given): 3ml 1.5% Lidocaine with 1:200K Epinephrine Given and Negative Test Dose Loss of Resistance Depth (cm): 6 Catheter depth at skin (cm): 12 Dressing: Sorbaview Dressing Placed, Tegaderm Applied, Mastisol Used and Dressing reinforced with Tape Epidural Provider Bolus (Indicate Dose Given): Total Ropivacaine 0.1% with Fentanyl 2mcg/ml Given from pump. (ml) Dose:: 7cc Additives (Indicate Dose Given ): None Infusion Medication: Medication Infusion Began Medication Infusion: Ropivacaine 0.1% with Fentanyl 2mcg/ml Maintenance Infusion Rate (ml/hour): 10 PCEA Bolus Dose (ml): 5 Block Level: T8 Paresthesia: None Ultrasound: Used to rodrick site Number of Attempts (See previous attempts in note section): 1 Procedure Tolerated: No Complications and Patient tolerated well Procedure Outcome: Successful Performed By: Balwinder Lobato
--- NOTE | 2024-06-19 22:27 | W.PM.OBNL1 ---
Date of service: 06/19/24 Time of Service: 22:27 Informed Consent Informed Consent: Regional Anesthesia and Risk,Benefits,Alternatives Discussed Pelvic Exam Dilation: 9 station: 0 Position: JACKY Contractions Monitor Mode: External Contraction Frequency(min): q2-3 Intensity: Moderate/Strong Fetus A Monitor: External (US) Heart Rate Baseline: 120 Variability: Moderate (6-25 BPM) Categories: Category I Amniotic Membrane Status: Ruptured Rupture Method: Spontaneous Amniotic Fluid: Meconium Amount: large amt, brown and particulate meconium Date of Membrane Rupture: 06/19/24 Time of Membrane Rupture: 22:15 Assessment and Plan Assessment and plan (1) Normal labor: Status: Acute Assessment and plan: A: Forebag crowned and SROM'ed meconium stained fluids Cvx 9 cm head at 0/-1, category 1 tracing Epidural giving moderate but not complete relief P: Dr. Mccord updated on pt status, will remain inhouse for delivery Anticipating , risk of SD identified and addressed Objective Vital Signs Reviewed: Yes Subjective Interval history since last seen: Epidural is effective but pt experiencing rectal pressure and anal pain especially with contractions. Is trying right or left lateral positioning to see if she can be more comfortable.
--- NOTE | 2024-06-19 22:41 | ANES.PREOP_ITS ---
General Info Date of Service Date Performed: 06/19/24 Height: 5 ft 4 in Weight: 92.986 kg Body Mass Index (BMI): 35.2 Meds Allergies and Home Medications Allergies Allergy/AdvReac Type Severity Reaction Status Date / Time No Known Allergies Allergy Verified 06/11/24 08:31 Home Medication ?Medication ?Instructions ?Recorded vits no.126-ferrous fum tab PO QDAY 10/16/23 28 mg iron-folic acid 800 mcg tablet (Classic ) ferrous sulfate 134 mg (27 mg 134 mg PO DAILY 05/06/24 iron) tablet Current Visit Medications: Current Medications Generic Name Dose Route Start Last Admin Trade Name Freq PRN Reason Stop Dose Admin Diphenhydramine HCl 25 mg 06/19/24 22:05 Diphenhydramine 50 Mg/Ml Vial IVP Q6H PRN PRN Persistent pruritis face/trunk Ephedrine Sulfate 5 mg 06/19/24 22:05 Ephedrine 50 Mg/Ml Vial IVP DIRECTED PRN Fentanyl/Ropivacaine 200 ml 06/19/24 20:45 Fentanyl/Ropivacaine 2 Mcg/Ml And 0.1% 200 Ml Cadd Cassette EP DIRECTED EMILY Ringer's Solution 1,000 mls @ 125 mls/hr 06/19/24 21:00 IV INFUSION EMILY Naloxone HCl 2 mg/ Sodium 500 mls @ 11.623 mls/hr 06/19/24 22:05 Chloride IV INFUSION PRN pruritis 0.5 MCG/KG/HR Nalbuphine HCl 5 mg/ Sodium 50.5 mls @ 100 mls/hr 06/19/24 22:05 Chloride IVPB Q3H PRN PRN Pruritis Naloxone HCl 0 mg 06/19/24 22:05 Naloxone 0.4 Mg/Ml Vial IVP DIRECTED PRN Ondansetron HCl 4 mg 06/19/24 22:05 Ondansetron 4 Mg/2 Ml Vial IVP Q6H PRN PRN Nausea Sodium Chloride 0 ml 06/19/24 20:48 Normal Saline Flush 10 Ml Syr IVP PRN PRN PFSH Active Problems Active Problems: Problem Status Onset Code 41 weeks gestation of Acute O48.0, Z3A.41 Normal labor Acute O80, Z37.9 History of loss in prior , currently Acute O09.299 Antithrombin III deficiency Acute ~01/2022 D68.59 Family history of congenital heart defect Acute Z82.79 Acute Z34.90 Medical History Medical History (Updated 06/19/24 @ 19:41 by Ann-Marie Marte) Initiation of oral contraception Delayed menses History of recurrent miscarriages x3 Flank pain 2020 right lower pelvic/hip pain Axillary lump 2003 resolved spontaneously Adnexal pain Surgical History Surgical History Hx of dilation and curettage 10/24/21. for missed AB at 9w EGA. CRL c/w 7w EGA. History of gynecologic surgery 2014. laparoscopic ovarian cystectomy and release of R ovarian torsion. Retained her ovary. Hx of laparoscopy 2020. Laparoscopy wih lysis of adhesions of R adnexa. Hx of appendectomy laparoscopic in her 20s. Hx of cholecystectomy laparoscopic. as a child. Tobacco Smoking/Tobacco Use Status: Never Alcohol Alcohol Intake: former Substance Use Substance use: Never Substance use type: does not use Details: 5 P's negative screen Prental History History 2 4 Para 0 Hx # Term Pregnancies 0 Multiple births 0 Hx # Pregnancies 0 Ectopic pregnancies 0 AB induced 0 Hx Number of Living Children 0 AB spontaneous 3 Past Pregnancies Del. Date GA/Weeks # Preg Succ Route Wgt Sex Labor Lgth Anesth esia Location Prov Complic 10/23/21 9 Cristin Larios or 12/17/21 4 No 01/17/22 No Delivery Date: 10/23/21 Last Updated by: Yvonne Roberts LPN suction D+c for miscarriage Delivery Date: 12/17/21 Last Updated by: Donna Christian CNM SAB without complication Delivery Date: 01/17/22 Last Updated by: Donna Christian CNM SAB without complications Vital Signs and Lab Results Vital Signs Most Recent Vital Signs in EMR: Most Recent Vital Signs Temp Pulse Resp BP Pulse Ox 36.8 C 86 18 119/67 97 06/19/24 20:25 06/19/24 22:37 06/19/24 20:25 06/19/24 22:26 06/19/24 22:36 Lab Results 06/19/24 19:52 Blood Type / Crossmatch: 2 Antibody Screen NEGATIVE 06/19/24 Complete Blood Count: 2 White Blood Count 14.95 10^3/uL (4.4-10.8) H 06/19/24 19:52 Red Blood Count 3.94 10^6/uL (3.93-5.22) 06/19/24 19:52 Hemoglobin 12.4 g/dL (11.2-15.7) 06/19/24 19:52 Hematocrit 35.6 % (36.0-46.0) L 06/19/24 19:52 Platelet Count 193 10^3/uL (130-400) 06/19/24 19:52 Complete Metabolic Panel: 2 No Data to Display Liver Function Panel: 2 No Data to Display Coagulation Panel: 2 No Data to Display Cardiac Panel: 2 No Data to Display Arterial Blood Gas: 2 No Data to Display Venous Blood Gas: 2 No Data to Display Pancreas Panel: 2 No Data to Display Thyroid Panel: 2 No Data to Display Infectious Disease: 2 No Data to Display Blood Cultures: 2 No Data to Display Toxicology Panel: 2 No Data to Display Panel: 2 No Data to Display Anesthesia Assessment and Plan Anesthesia History Personal History: No History of Anesthesia Complications Family History: No Family History of Anesthesia Complications Exercise Tolerance Exercise Tolerance: Metabolic Equivalents>4 Pertinent Negatives Pertinent Negatives: No Symptoms of GERD Cardiac & Pulmonary Exam Cardiac Exam: Normal S1/S2 Heart Sounds Pulmonary Exam: Clear Bilateral Breath Sounds Implantable Cardiac Device Does patient have a Pacemaker or an ICD?: No Airway Exam Known Difficult Airway: No Mallampati Class: 2 Mouth Opening: Normal (> 3cm) Thyromental Distance: Greater than 3 cm Neck Range of Motion: Full ROM Neck Circumference: Normal Teeth Condition: Normal Dentition ASA Classification ASA Score: ASA 2 Emergency Case?: No NPO Status NPO Status: NPO Clear Liquids>2 hours Status Status: Confirmed Anesthesia Plan Resuscitation Status: Full Code Anesthesia Technique: Labor Epidural Airway Planned: Natural Airway Monitors Used: Standard Monitors
[2024-06-20] VITALS (13 sets, daily range): BP systolic 101–121; BP diastolic 56–78; PULSE 65–90; RESP 16–17; TEMP 36.6–36.9; O2SAT 97–99
--- NOTE | 2024-06-20 01:00 | OBVDS_ITS ---
Date of service: 06/20/24 Time of Service: 01:01 OB Labor/ Delivery Information Baby A Delivery Delivery Method: Spontaneaous Presentation: Cephalic Cephalic Position: Vertex Vertex Position: Right Occipital Anterior Breech Position: N/A Cord Description-Baby A: 3 Vessels and Other (left hand at face) Amniotic Fluid: Meconium Estimated Blood Loss: 350 EBL Delivery Outcome: Liveborn Infant Transferred: Remains with Mother Note: After an hour of passive descent in second stage with pt in lateral positioning and FHT tracing @ cateory 1, pt reported increasingly strong urges to push and was stooling spontaneously, exam @ 2335 found vtx @ +3 fully dilated, 2nd stage huddle completed and coached pushing was begun. Last void was 2 hrs earlier, FHT became category 2 with variable decels recurrent and periodic. Excellent maternal efforts in semi fowlers with feet supported on squat bar resulted in delivery in about 50 minutes, Dr. Mccord in room for delivery, of a vigorous female , head delivery controlled by CNM, shoulders were tight and compound presentation of left hand noted, Dr. Mccord facilitated shoulder delivery with maternal legs in Adrián and gentle brief suprapubic pressure delivered by RN for delivery of anterior shoulder after left arm extended, then lora delivery of body, infant crying and placed in mother's arms. pitocin bolus begun, cord ceased pulsating and was clamped then cut by FOB, cord blood collected, Vines placenta delivered intact with 3 VC. Upon inspection of introitus 3rd degree laceration noted and repaired by Dr. Mccord under local anesthesia. Fundus firm below umbilicus and lochia was minimal, strong family bonding observed, apgars 8/9, weight 3785 gms. Providers Doctor: Cristin Mccord Nurse Applications Systems Engineer: Ann-Marie Marte Agricultural Adviser: Balwinder Lobato Nurse: Delisa Wood Nurse: Farhana Jewell Labor/Delivery Information Number of Babies in Womb: 1 Steroids Given: None Reason Steroids Not Administered: N/A Group Beta Strep: Negative Antibiotics Administered: No Rubella Status: Immune Blood Type: O+ Varicella Immunity: Immune Shoulder Dystocia: Yes Note: brief dystocia complicated by hand at face, resolved quickly within 1 minute with Adrián and brief suprapubic pressure Stages of Labor Onset of Labor Date: 06/19/24 Onset of Labor Time: 13:30 (pt napped at home after labor check earlier in the morning, woke up with stronger contractions) Complete Dilatation Date: 06/19/24 Complete Dilatation Time: 23:00 Labor - Stage 1 Duration: 9 hours and 30 minutes ROM Baby A: 06/19/24 ROM Baby A: 22:15 ROM Total Time- Baby A: hours-1307minutes Infant Delivery Date-Baby A: 06/19/24 Infant Delivery Time-Baby A: 00:28 Labor Stage 2 Duration: -1352 minutes Placenta Delivery Date-Baby A: 06/20/24 Placenta Delivery Time-Baby A: 00:34 Labor-Stage 3 Duration: 24 hours and 6 minutes Total Length of Labor-Baby A: -782 minutes Placenta Status: Delivered Baby A Gender: Female Gestational Status: Term (39-41.6 wks) weight: 8 lb 5.512 oz Weight Comment: 3785 gms Score-1 Minute Interval(Baby A) Heart Rate-1 minute: 100 BPM or Greater Respiratory Effort- 1 minute: Slow Respiration/Weak Cry Muscle Tone-1 minute: Active Movement Reflex Response-1 minute: Prompt Response Color-1 minute: Bluish Hands or Feet Total Score-1 minute: 8 Score-5 Minute Interval(Baby A) Heart Rate- 5 minute: 100 BPM or Greater Respiratory Effort-5 minute: Spontaneous/Strong Cry Muscle Tone-5 minute: Active Movement Reflex Response-5 minute: Prompt Response Color-5 minute: Bluish Hands or Feet Total Score- 5 minute: 9 Shoulder Dystocia Delivery Times Date of Delivery of Head: 06/20/24 Time of Delivery of the Head: 00:27 Head to Body Delivery Interval(minutes): 1 Verify No Fundal Pressure Applied Fundal Pressure: No Pressure Applied
--- NOTE | 2024-06-20 01:01 | OBVDS_ITS ---
Date of service: 07/05/24 Time of Service: 23:15 OB Labor/ Delivery Information Baby A Delivery Delivery Method: Spontaneaous Presentation: Cephalic (hand of posterior arm against face on . Delivered through without additional maneuvers.) Cephalic Position: Vertex Breech Position: N/A Cord Description-Baby A: 3 Vessels Cord Description Comment: Placenta intact with nl configuration. Amniotic Fluid: Meconium Delivery Outcome: Liveborn Transferred: Remains with Mother Providers Nurse Sales Marketing Coordinator: Ann-Marie Marte Nurse: Delisa Wood Nurse: Farhana Jewell Other: Cristin Mccord MD present in room during delivery. Labor/Delivery Information Number of Babies in Womb: 1 Steroids Given: None Reason Steroids Not Administered: N/A Group Beta Strep: Negative Antibiotics Administered: No Rubella Status: Immune Blood Type: O+ Varicella Immunity: Immune Shoulder Dystocia: Yes Stages of Labor Onset of Labor Date: 06/18/24 Onset of Labor Time: 17:00 Complete Dilatation Date: 06/19/24 ROM Baby A: 06/19/24 ROM Baby A: 22:15 ROM Total Time- Baby A: hours-1307minutes Delivery Date-Baby A: 06/19/24 Infant Delivery Time-Baby A: 00:28 Placenta Delivery Date-Baby A: 06/20/24 Placenta Delivery Time-Baby A: 00:34 Labor-Stage 3 Duration: 24 hours and 6 minutes Total Length of Labor-Baby A: 7 hours and 28 minutes Placenta Status: Delivered Baby A Infant Gender: Female Gestational Status: Term (39-41.6 wks) Score-1 Minute Interval(Baby A) Heart Rate-1 minute: 100 BPM or Greater Respiratory Effort- 1 minute: Slow Respiration/Weak Cry Muscle Tone-1 minute: Active Movement Reflex Response-1 minute: Prompt Response Color-1 minute: Bluish Hands or Feet Total Score-1 minute: 8 Score-5 Minute Interval(Baby A) Heart Rate- 5 minute: 100 BPM or Greater Respiratory Effort-5 minute: Spontaneous/Strong Cry Muscle Tone-5 minute: Active Movement Reflex Response-5 minute: Prompt Response Color-5 minute: Bluish Hands or Feet Total Score- 5 minute: 9 Interventions Repair of Laceration (performed with 2-0 Vicryl and 3-0 Vicryl in usual fashion) Type: Perineal, Laceration Extension: Third Degree (Rectal capsule intact. Digital rectal exam performed at completion of repair. ). Sponge Count Correct: Yes, Sharp Count Correct: Yes. Shoulder Dystocia Delivery Times Date of Delivery of Head: 06/20/24 Time of Delivery of the Head: 00:27 Head to Body Delivery Interval(minutes): 1
[2024-06-20] MEDS: Acetaminophen 325 MG TAB 650 MG PO ×4 (01:58→20:39)
[2024-06-20] MEDS: Ibuprofen 600 MG TAB PO ×4 (01:58→20:40)
[2024-06-20] MEDS: Lactated Ringers 500 ML IV (02:31)
[2024-06-20] MEDS: Dibucaine 1% 28 GM TUBE TP ×2 (05:44→20:39)
[2024-06-20] MEDS: Hamamelis Leaf/Glycerin 100 EACH BOX PR (05:44)
[2024-06-20] MEDS: Docusate Sodium 100 MG CAP PO ×2 (08:08→20:39)
--- NOTE | 2024-06-20 10:55 | OBPPV_ITS ---
Date of service: 06/20/24 Time of Service: 10:55 Assessment and Plan Assessment and plan (1) Term delivered: Status: Acute Assessment and plan: A: Day of delivery, nml recovery; off to a good start Pt ambulating around unit, feeling well, pleased with experience P: Routine PP care, support Encourage ambulation and activity/position changes in pt room Vasectomy is planned for BCM Likely discharge to home tomorrow Subjective Subjective Patient comments: No complaints, Pain well controlled and Tolerating diet Patient's Mood: happy [place] baby status: Doing well, Nursing well, Rooming in and Strong Bonding Observed feeding status: Exclusively breast feeding Exam Physical Exam Vital signs: Temp Pulse Resp BP Pulse Ox 98.2 F 82 17 113/68 99 06/20/24 05:05 06/20/24 05:05 06/20/24 05:05 06/20/24 05:05 06/20/24 05:05 Vital Signs Reviewed: Yes Constitutional Constitutional: no acute distress, average body habitus and cooperative HEENT Exam HEENT Exam: Normal Neck Exam Neck Exam: Normal Breast Exam Bilateral: Breast Exam: Normal and Soft Nipple Exam: Normal and Uninjured Respiratory Exam Respiratory Exam: Normal Cardiovascular Exam Cardiovascular Exam: Normal Abdominal Exam Abdomen: Other (soft, nontender) Fundal Exam Fundus: Below Umbilicus and Firm Rectal Exam Rectal Exam: Normal Exam Perineum: Repair Intact Extremities Exam Extremity Exam: Normal, Full ROM and Warm to Touch Back/Spine/Pelvis Exam Back Exam: Normal Skin Exam Skin Exam: Normal Neurological Exam Neurological Exam: Normal Psychiatric Exam Psychiatric Exam: Normal
--- NOTE | 2024-06-20 13:09 | W.ANESNEU ---
Epidural/Spinal Cath. Removal Date Performed: 06/20/24 Procedure Time: 13:10 Catheter Removal Type: Epidural Catheter Procedure Location: Obstetrics Patient Position: Other Catheter Removal Procedure: Dressing Removed and Catheter Removed without Resistance (Removed by RN after vaginal delivery. Tip intact.) Paresthesia: None Procedure Tolerated: No Complications Procedure Outcome: Successful Performed By: Balwinder Lobato
--- NOTE | 2024-06-20 13:11 | W.ANESPOSTOP ---
Postoperative Evaluation Date, Time and Location Date Performed: 06/20/24 Time Performed: 13:11 Patient Location: Obstetrics Vital Signs Most Recent Imported Vital Signs: Most Recent Vital Signs Temp Pulse Resp BP Pulse Ox 36.9 C 65 16 101/66 97 06/20/24 11:55 06/20/24 11:55 06/20/24 11:55 06/20/24 11:55 06/20/24 11:55 Pain Score Most Recent Pain Score: Most Recent Pain Score Pain Level [Abdomen] 2 06/20/24 11:55 Pain Level 4 06/20/24 08:09 Assessment Mental Status: Awake (Alert & Oriented to Patient Baseline) Airway and Respiratory Function: Patent airway with normal (patient baseline) respiratory exam Cardiovascular Function: Hemodynamically Stable Hydration Status: Adequately Hydrated Nausea & Vomiting: No Nausea or Vomiting Pain: Pt. Denies Any Pain Peripheral Nerve Block: Patient did not receive a nerve block Postoperative Comments:: Post vaginal delivery with labor epidural. Epidural removed by property staff accountant. Pt is happy with experience and reports no issues today. Rai Lobato, TIMBER ROBBER
[2024-06-21] MEDS: Acetaminophen 325 MG TAB 650 MG PO ×2 (03:10→09:43)
[2024-06-21] MEDS: Ibuprofen 600 MG TAB PO ×2 (03:10→09:43)
[2024-06-21 07:40] VITALS: BP 107/70; PULSE 76; RESP 16; TEMP 36.6; O2SAT 98
--- NOTE | 2024-06-21 08:34 | W.PM.OBPNV1 ---
Date of service: 06/21/24 Time of Service: 08:34 Assessment and Plan Assessment and plan (1) Term delivered: Status: Acute Assessment and plan: A: PPD#1, nml recovery; going well P: Plan discharge to home today Vasectomy is planned for BCM Written instructions reviewed and given to pt F/up at 2 & 6 weeks Subjective Subjective Patient comments: No complaints, Pain well controlled, Tolerating diet and Flatus present Patient's Mood: happy [place] baby status: Doing well, Nursing well, Rooming in and Strong Bonding Observed feeding status: Exclusively breast feeding Exam Physical Exam Vital signs: Temp Pulse Resp BP Pulse Ox 97.9 F 76 16 107/70 98 06/21/24 07:40 06/21/24 07:40 06/21/24 07:40 06/21/24 07:40 06/21/24 07:40 Vital Signs Reviewed: Yes Constitutional Constitutional: no acute distress, average body habitus and cooperative HEENT Exam HEENT Exam: Normal Neck Exam Neck Exam: Normal Breast Exam Bilateral: Breast Exam: Normal and Soft Respiratory Exam Respiratory Exam: Normal Cardiovascular Exam Cardiovascular Exam: Normal Abdominal Exam Abdomen: Other (soft, nontender) Fundal Exam Fundus: Below Umbilicus and Firm Rectal Exam Rectal Exam: Normal Exam Perineum: Repair Intact Extremities Exam Extremity Exam: Normal, Full ROM and Warm to Touch Back/Spine/Pelvis Exam Back Exam: Normal Skin Exam Skin Exam: Normal Neurological Exam Neurological Exam: Normal Psychiatric Exam Psychiatric Exam: Normal Hemorrrhage Note IV Site Left Antecubital: IV Catheter Gauge: 20
--- NOTE | 2024-06-21 08:36 | DSE_ITS ---
Date of service: 06/21/24 Time of Service: 08:36 DS: Diagnosis Discharge Diagnosis (1) Term delivered: Status: Acute Discharge Plan Disposition Patient Disposition: Home Condition: Good Discharge Details Reason For Visit: NST Admit Date/Time: 06/19/24 19:39 Admit Provider: Ann-Marie Marte Attending Provider: Ann-Marie Marte Primary Care Provider: Honey Caballero Hospital Course Hospital Course: Spontaneous labor, epidural anesthesia, , nml course Home Meds and New Rx's Prescriptions: No Action Classic 28 mg iron- 800 mcg tablet PO QDAY ferrous sulfate 134 mg (27 mg iron) tablet 134 mg PO DAILY Discharge Instructions Additional Instructions: Please keep your 2 and 6 week appointments with the staff midwife/apprenticeship director, call for any and all concerns. Stand Alone Forms: BC Instructions, BC Post Vaginal Deliver Activity:: Activity as Tolerated Equipment/Supplies:: No Equipment Needed Diet:: Normal Diet OB:DS Summary Summary Vaginal Delivery Method: Spontaneaous Episiotomy Description: None Laceration Description: Perineal Laceration Extension: Third Degree (Rectal capsule intact. Digital rectal exam performed at completion of repair. ) Contraception Discussed Contraception Discussed: Yes Contraceptive Plan: Vasectomy, Gender-Baby A: Female weight: 8 lb 5.512 oz Status at Discharge Functional status at discharge: independent ambulation Overall status at discharge: patient is progressing back to baseline Mental Status: mental status grossly normal Speech and Movement: speech and movement normal and speech clear Mood: congruent mood Affect: normal affect Quality:SDOH Health Related Social Needs: No Data to Display Exam Physical Exam Vital signs: Temp Pulse Resp BP Pulse Ox 97.9 F 76 16 107/70 98 06/21/24 07:40 06/21/24 07:40 06/21/24 07:40 06/21/24 07:40 06/21/24 07:40 Vital Signs Reviewed: Yes Constitutional Constitutional: no acute distress, average body habitus and cooperative HEENT Exam HEENT Exam: Normal Neck Exam Neck Exam: Normal Breast Exam Bilateral: Breast Exam: Normal and Soft Respiratory Exam Respiratory Exam: Normal Cardiovascular Exam Cardiovascular Exam: Normal Abdominal Exam Abdomen: Other (soft, nontender) Fundal Exam Fundus: Below Umbilicus and Firm Rectal Exam Rectal Exam: Normal Exam Perineum: Repair Intact Extremities Exam Extremity Exam: Normal, Full ROM and Warm to Touch Back/Spine/Pelvis Exam Back Exam: Normal Skin Exam Skin Exam: Normal Neurological Exam Neurological Exam: Normal Psychiatric Exam Psychiatric Exam: Normal PFSH All Active Problems (Updated 06/20/24 @ 10:58 by Ann-Marie Marte) Term delivered (Acute) 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 for missed AB at 9w EGA. CRL c/w 7w EGA. History of gynecologic surgery 2014. laparoscopic ovarian cystectomy and release of R ovarian torsion. Retained her ovary. Hx of laparoscopy 2020. Laparoscopy wih lysis of adhesions of R adnexa. Hx of appendectomy laparoscopic in her 20s. Hx of cholecystectomy laparoscopic. as a child. Family History Mother No problems noted. Father No problems noted. Brother No problems noted. Brother No problems noted. 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 Sexually active: Yes Do you think of yourself as: straight/heterosexual Current gender identity: female What is your relationship status?: Panel score (0-1 are the most socially isolated patients): 1 What type of physical activity do you participate in: regular exercise Frequency: daily Special adam needs: No Agree to transfusion: Yes Seatbelt use: always Helmet use: Yes Drive intox or ride w/intox [employer] company driver: No Working smoke detector in home: Yes Fire extinguisher in home: Yes Carbon monox detector in home: Yes Do you feel safe at home: Yes Do you feel safe in your relationship?: Yes Victim of physical abuse: No Victim of emotional abuse: No Victim of sexual abuse: No History History 4 Para 0 Hx # Term Pregnancies 0 Multiple births 0 Hx # Pregnancies 0 Ectopic pregnancies 0 AB induced 0 Hx Number of Living Children 0 AB spontaneous 3 Past Pregnancies Del. Date GA/Weeks # Preg Succ Route Wgt Sex Labor Lgth Anesth esia Location Prov Complic 10/23/21 9 Cristin Larios or 12/17/21 4 No 01/17/22 No Delivery Date: 10/23/21 Last Updated by: Yvonne Roberts LPN suction D+c for miscarriage Delivery Date: 12/17/21 Last Updated by: Donna Christian CNM SAB without complication Delivery Date: 01/17/22 Last Updated by: Donna Christian CNM SAB without complications DS: Data Vitals/I&O Vitals and I&O: Vital Signs Temperature 97.9 F 06/21/24 07:40 Temperature Source Oral 06/21/24 07:40 Pulse 76 06/21/24 07:40 Pulse Rhythm Regular 06/21/24 07:40 Respiratory Rate 16 06/21/24 07:40 Respiratory Depth Normal 06/20/24 20:30 Blood Pressure 107/70 06/21/24 07:40 Blood Pressure Mean 82 06/21/24 07:40 Pulse Oximetry 98 06/21/24 07:40 Pain Level 3 06/21/24 07:40 Comment tub temp is 100 06/19/24 20:25 Intake & Output 06/20/24 06/20/24 06/21/24 11:59 23:59 10:59 Output Total 1800 / 1800 Balance -1800 / -1800 Output: Urine 1450 / 1450 Blood 350 / 350 Other: Urine Color Yellow Yellow Urine Appearance Clear Urine Odor None
[2024-06-21] MEDS: Docusate Sodium 100 MG CAP PO (09:42)
[2024-06-21] MEDS: Dibucaine 1% 28 GM TUBE TP (09:42)
[2024-06-21] MEDS: Hamamelis Leaf/Glycerin 100 EACH BOX PR (09:42)
== END 2024-06-21 11:45 | disposition home or self-care (01) | DRG 768 ==
LOC: BCD 19:58 → OBS 19:58
PROVIDERS: Admitting Provider Advanced Practice Midwife; PCP Nurse Practitioner Adult Health; Visit Provider Advanced Practice Midwife
DX: O48.0 Post-term pregnancy (principal); Z37.0 Single live birth; O70.20 Third degree perineal laceration during delivery, unspecified; O99.12 Other diseases of the blood and blood-forming organs and certain disorders involving the immune mechanism complicating childbirth; D68.59 Other primary thrombophilia; Z3A.41 41 weeks gestation of pregnancy; O32.6XX0 Maternal care for compound presentation, not applicable or unspecified; O77.0 Labor and delivery complicated by meconium in amniotic fluid; O66.0 Obstructed labor due to shoulder dystocia; O87.4 Varicose veins of lower extremity in the puerperium; I83.91 Asymptomatic varicose veins of right lower extremity
CPT/HCPCS: 85027; 86850; 86900; 86901